=== PATIENT | female | born 1995 | race Caucasian/White ===

== ENCOUNTER → 2019-07-21 16:19 | Outpatient (CLI) | payer MEDICAID, SELFPAY ==
[2019-07-21 13:23] VITALS: BMI 25.4
== END ==
PROVIDERS: Referring Provider Obstetrics & Gynecology; Visit Provider Obstetrics & Gynecology
DX: O09.90 Supervision of high risk pregnancy, unspecified, unspecified trimester (principal); Z3A.00 Weeks of gestation of pregnancy not specified
CPT/HCPCS: 87086; 87088

== ENCOUNTER 2019-07-23 18:55 | Outpatient (CLI) | payer MEDICAID, SELFPAY ==
[2019-07-21 13:23] VITALS: BMI 25.4
--- NOTE | 2019-07-23 18:24 | US_ITS ---
STUDY: SECOND AND THIRD TRIMESTER OBSTETRICAL ULTRASOUND REASON FOR EXAM: Female, 24 years old growth. Possible abruption. LMP: February 15, 2019. TECHNIQUE: Transabdominal TECHNICAL QUALITY: Adequate. PRIOR ULTRASOUND: None. FINDINGS: There is a single intrauterine fetus. The fetus is in a breech presentation. There is demonstrated cardiac activity with a heart rate of 170 bpm. There is severe oligohydramnios. The largest amniotic fluid pocket measures 0.79 cm. The amniotic fluid index (FRANCO) is 1.53 cm. The placenta is fundal and posterior. There are Grade 1 placental changes. There is an anechoic area measuring 4.4 x 3.9 x 1.7 cm along the fundus and the possibility of infection cannot be ruled out. The cervix measures 3.91 cm in length. The adnexal regions are not visualized. BIOMETRY: BPD: 4.43 cm: 19 weeks, 3 days HC: 19.1 cm: 21 weeks, 3 days AC: 17.37 cm: 22 weeks, 3 days FL: 3.71 cm: 21 weeks, 6 days CI: 66 FL/BPD: 84 FL/HC: FL/AC: 21 HC/AC: 1.10 age by current US: 21 weeks, 2 days. DIVINE by current US: December 01, 2019. Estimated weight: 459 grams, +/- 67 grams, 15 %. Age by LMP: 22 weeks, 4 days. DIVINE by LMP: November 22, 2019. US/OB Limited With Biometrics IMPRESSION: 1. Live single intrauterine at 21 weeks, 2 days. DIVINE is March 02, 2020. 2. Marked oligohydramnios with an FRANCO of 1.53 cm. 3. Question abruption although the placenta in the fundal area. 4. Breech presentation. 5. EFW [address] Sharma was advised of these findings by the social service manager following the completion of the examination. Electronically Signed: Jalen Norton DO at 19:13 EST Tel [phone], Service support ,
[2019-07-23 19:31] VITALS: BMI 25.8
[2019-07-23 20:17] LABS: ROM Internal Control Test YES-OK TO RESULT pt. (Internal QC); ROM Patient Test Negative (Negative)
[2019-07-23 20:33] LABS: Fetal Fibronectin POSITIVE
--- NOTE | 2019-07-23 21:18 | OB.TRI.NOTE ---
- Problem List (1) Oligohydramnios in second trimester Status: Acute Qualifiers: Qualified Code(s): O41.02X0 - Oligohydramnios, second trimester, not applicable or unspecified Comment: 1.7 on 07/23. plan MFM consult for evaluation and recommendation (2) Placental abruption Status: Acute Comment: growth q 4 weeks, weekly nsts after 32 weeks. Rh positive. (3) Status: Acute Comment: DEISY 22 weeks. patient of Piedad Fraser. (4) Supervision of high-risk Status: Acute Comment: DIVINE 11/19/19 girl Violetta CHRIS RedmondJaz Grace - Lazaro History of Present Illness Date of Service: 07/23/19 Was patient seen by the physician?: Yes Reason For Visit: ABRUPTION, SEVERE OLIGIO Final DIVINE: 11/19/19 Gestational age: 23 Weeks and 0 Days History of Present Illness: 24 yo @ 23 weeks presents for evaluation secondary to severe oligohydramnios and placental abruption seen on ultrasound today. 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 ROM plus is negative but fibronectin is positive. Patient states she has had some intermittent brown discharge for weeks and 2 to 3 weeks ago she had a possible clear loss of fluid that has not been perceptively persistent so she did not initially suspect her water could have been broken. She denies any regular contractions or cramping. She feels significant movement. Allergies Penicillins Allergy (Mild, Verified 07/21/19 13:16) Family history - Pertinent Past Medical History Pertinent Past Medical History: 3 previous term deliveries at home uncomplicated Laboratory Studies: Laboratory Tests 07/23/19 07/23/19 Range/Units 19:20 19:20 Vag Amniotic Fld Detect Negative (Negative) Fibronectin POSITIVE H Review of Systems Constitutional: Denies: Fever, Malaise Eyes: Denies: Blurred vision, Vision Change HEENT: Denies: Head Aches, Visual Changes Cardiovascular: Denies: Chest Pain, Palpitations Respiratory: Denies: Cough, Shortness of Breath, Wheezing Gastrointestinal: Denies: Abdominal Pain, Diarrhea, Nausea, Vomiting Genitourinary: Denies: Dysuria, Hematuria Gynecological: Reports: Vaginal bleeding, Vaginal discharge Musculoskeletal: Denies: Joint Pain, Muscle pain Skin: Denies: Lesions, Rash Neurological: Denies: Blurred vision, Focal weakness, Headaches Psychiatric: Denies: Anxiety, Depression Endocrine: Denies: Heat/ Cold Intolerance Hematologic/ Lymphatic: Denies: Easy Bruising, Easy Bleeding Physical Exam General: Alert, Cooperative, No apparent distress HEENT: Atraumatic, Normocephalic. Negative for: Thyromegaly, Lymphadenopathy Cardiovascular: Regular rate Lungs: Normal air movement Abdomen: Soft, Non Tender, Gravid Estimated gestational size: Small for gestational age Presentation: Cephalic Cervix Dilation (cm): 0 NST - FHR Rate Baby A Baseline: 160 Uterine Activity:: No regular contractions Impression/Plan 24-year-old G4, P3 at 23 weeks with severe oligohydramnios placental abruption Question placental insufficiency versus early PPROM. Less likely to be an anatomical abnormality. Recommend modified bedrest and oral hydration and follow-up with maternal- medicine for evaluation and recommendation for delivery. Multi Select Codes - Visit Charges Office Visit/Consults: [id number] OV L4 Est
[2019-07-23 22:18] LABS: Absolute Lymphocyte Count 2.41 X10^3/uL (0.83-4.51); Absolute Neutrophil Count 5.2 X10^3/uL (2.0-7.7); Basophil# 0.04 X10^3/uL; Basophil% 0.5 % (0-1); Eosinophil# 0.07 X10^3/uL; Eosinophils% 0.8 % (0-5); Hematocrit 37.7 % (37-47); Lymphocyte # 2.41 X10^3/ul (4.0); Lymphocyte % 28.5 % (19-41); Mean Corp Hgb Conc 34.5 g/dL (32-36); Mean Corpuscular Hgb 32.7 pg (27.0-32.0); Mean Corpuscular Volume 94.7 fL (81-99); Mean Platelet Vol. 11.3 fl (6.2-12.0); Monocyte# 0.73 X10^3/uL; Monocyte% 8.6 % (0-10); NRBC Flagged by Analyzer 0 % (0-5); Neutrophil # 5.18 X10^3/uL (2.7-7.7); Neutrophil % 61.1 % (47-70); Platelet Count 170 K/mm3 (150-450); RBC Distribution Width CV 11.9 % (11.6-14.6); RBC Distribution Width SD 40.3 fl (35.1-43.9); Red Blood Count 3.98 M/mm3 (4.2-5.4); White Blood Count 8.5 K/mm3 (4.4-11.0)
[2019-07-23 22:21] LABS: Prothrombin Time (Protime)PT. 13.4 SECONDS (11.7-14.9)
[2019-07-23 22:22] LABS: Fibrinogen 350 mg/dl (203-444); Partial Thromboplast Time 29.1 Seconds (24.1-36.2)
[2019-07-24 12:06] LABS: Kleihauer-Betke Negative
== END 2019-07-23 22:30 | disposition home or self-care (01) ==
LOC: US 18:59 → WP 19:01
PROVIDERS: Referring Provider Obstetrics & Gynecology; Visit Provider Obstetrics & Gynecology
DX: O41.02X0 Oligohydramnios, second trimester, not applicable or unspecified (principal); O45.92 Premature separation of placenta, unspecified, second trimester; O36.5920 Maternal care for other known or suspected poor fetal growth, second trimester, not applicable or unspecified; Z88.0 Allergy status to penicillin; Z3A.23 23 weeks gestation of pregnancy
CPT/HCPCS: 36415; 59025; 59050; 76815; 76816; 82731; 84112; 85025; 85384; 85460; 85610; 85730; 99218; G0378